=== PATIENT | female | born 1980 | race Hispanic/Latino ===

== ENCOUNTER 2019-08-28 19:50 | Emergency (ER) | payer OTHER ==
[2019-08-28] MEDS ORDERED: DIAZEPAM 5 MG TABLET ONE (20:18)
[2019-08-28] MEDS ORDERED: ASPIRIN 325 MG TABLET ONE (20:18)
[2019-08-28 20:23] LABS: BASOPHILS % (AUTO) 0.3 % (0.0-5.0); EOSINOPHILS % (AUTO) 2.9 % (0.0-8.0); HEMATOCRIT 39.3 % (36-48); LYMPHOCYTES % (AUTO) 23.6 % (21.0-51.0); MEAN CORPUSCULAR HEMOGLOBIN 28.8 pg (27.0-33.0); MEAN CORPUSCULAR HGB CONC 32.3 g/dL (32.0-36.0); MEAN CORPUSCULAR VOLUME 89.1 fL (79-99); MONOCYTES % (AUTO) 8.9 % (3.0-13.0); PLATELET COUNT (AUTO) 254 K/uL (130-400); RED BLOOD CELL COUNT(AUTO) 4.41 MIL/uL (4.00-5.50); RED CELL DISTRIBUTION WIDTH 13.1 % (11.0-15.5); WHITE BLOOD COUNT (AUTO) 9.6 K/uL (4.8-10.8)
[2019-08-28 20:29] LABS: CREATININE 0.7 mg/dL (0.5-1.5); POTASSIUM 3.5 mmol/L (3.5-5.1)
[2019-08-28 20:34] LABS: ALBUMIN 3.2 g/dL (3.5-5.0); BILIRUBIN,TOTAL 0.3 mg/dL (0.2-1.0); TOTAL PROTEIN, SERUM 6.7 g/dL (6.0-8.3)
[2019-08-28] MEDS ORDERED: KETOROLAC TROMETHAMINE 30MG/ML ONE (21:38)
== END 2019-08-28 22:29 | disposition home or self-care (01) ==
LOC: EDH 19:50
DX: R07.89 Other chest pain (principal); E03.9 Hypothyroidism, unspecified; Z90.710 Acquired absence of both cervix and uterus
CPT/HCPCS: 36415; 71045; 80053; 82550; 84484 ×2; 85025; 93005 ×2; 96374; 99285; J1885

== ENCOUNTER → 2023-08-01 | Outpatient (CLI) | payer OTHER ==
[2023-08-01 09:33] LABS: T4 (THYROXINE) 6.6 ug/dL (4.7-13.3); THYROID STIMULATING HORMONE 1.54 uIU/mL (0.36-3.74)
== END | disposition home or self-care (01) ==
LOC: LAB 08:16
PROVIDERS: ATTEND Chiropractor
DX: E03.9 Hypothyroidism, unspecified (principal)
CPT/HCPCS: 36415; 84436; 84443; 84481

== ENCOUNTER → 2023-10-09 | Emergency (ER) | payer OTHER | LOC: EDH 18:52 | DX: R20.0 Anesthesia of skin (principal); R00.2 Palpitations; Z53.21 Procedure and treatment not carried out due to patient leaving prior to being seen by health care provider ==